=== PATIENT | male | born 1980 | race American Indian/Alaskan Native ===

== ENCOUNTER 2018-08-25 08:52 | Emergency (ER) | payer SELFPAY ==
[2018-08-25 09:02] VITALS: TEMP 98.7
--- NOTE | 2018-08-25 09:41 | ED PDOC ---
Arrival/HPI - General Chief Complaint: Abnormal Skin Integrity Time Seen by Provider: 08/25/18 09:05 Historian: Patient - History of Present Illness Narrative History of Present Illness (Text): 08/25/18 09:28 37 year old male, with no significant past medical history, presents to the emergency department complaining of left eye swelling that began 2 days ago. Patient reports there was a pimple near his left eye that was popped after showering and noted pus and blood. He denies any pain at this time. Patient denies wearing contacts or eye glasses. Patient denies any vision change, fevers, chills, chest pain, shortness of breath, back pain, neck pain, urinary symptoms, headache, dizziness, or any other complaint. PMD: None Time/Duration: Other (2 days) Symptom Onset: Gradual Symptom Course: Unchanged Activities at Onset: Light Context: Home Past Medical History - Provider Review Nursing Documentation Reviewed: Yes - Psychiatric Hx Substance Use: Yes (Marijuana) Family/Social History - Physician Review Nursing Documentation Reviewed: Yes Family/Social History: No Known Family HX Smoking Status: Light Smoker < 10 Cigarettes Daily Hx Alcohol Use: Yes Frequency of alcohol use: Socially Hx Substance Use: Yes (Marijuana) Allergies/Home Meds Allergies/Adverse Reactions: Allergies No Known Allergies Allergy (Verified 08/25/18 09:02) Review of Systems - Physician Review All systems were reviewed & negative as marked: Yes - Review of Systems Constitutional: absent: Fevers, Other (Chills) Eyes: Other (swelling to the left eye ). absent: Vision Changes Respiratory: absent: SOB Cardiovascular: absent: Chest Pain Gastrointestinal: absent: Abdominal Pain, Diarrhea, Nausea, Vomiting Musculoskeletal: absent: Back Pain, Neck Pain Neurological: absent: Headache, Dizziness Physical Exam Vital Signs Reviewed: Yes Vital Signs Temp Pulse Resp BP Pulse Ox 08/25/18 08:59 98.7 F 88 18 148/97 H 98 Temperature: Afebrile Blood Pressure: Hypertensive Pulse: Regular Respiratory Rate: Normal Appearance: Positive for: Well-Appearing, Non-Toxic, Comfortable Pain Distress: None Mental Status: Positive for: Alert and Oriented X 3 - Systems Exam Head: Present: Atraumatic, Normocephalic, Swelling (Periorbital swelling), Other (Dry excoriation to the left jain. Bogginess noted to the lower eyelid. Induration noted to the lateral position of the upper eyelid. ) Pupils: Present: PERRL Extroacular Muscles: Present: EOMI (no pain to the EOM) Conjunctiva: Present: Normal Mouth: Present: Moist Mucous Membranes Neck: Present: Normal Range of Motion Respiratory/Chest: Present: Clear to Auscultation, Good Air Exchange. No: Respiratory Distress, Accessory Muscle Use Cardiovascular: Present: Regular Rate and Rhythm, Normal S1, S2. No: Murmurs Neurological: Present: GCS=15, CN II-XII Intact, Speech Normal Skin: Present: Warm, Dry, Normal Color. No: Rashes Psychiatric: Present: Alert, Oriented x 3, Normal Insight, Normal Concentration Medical Decision Making ED Course and Treatment: 08/25/18 09:28 Impression: 37 year old male presents complaining of left eye swelling for the past 2 days. Patient had a pimple that ruptured out pus and blood near the left eye. Differential Diagnosis included but are not limited to: -- Prespetal Cellulitis -- Orbital Cellulitis -- Dacrocystitis -- Cavernous sinus thrombosis Plan: -- CT Sinuses w/o contrast -- Labs -- Reassess and disposition Progress Notes: 08/25/18 11:35 On re-evaluation, patient is in no acute distress. Patient noted to have no pain with extra ocular movement, afebrile and complaining of any headache. I have discussed the results and plan with the patient, who expresses understanding. He is in agreement with plan to be discharged home and understands he must continue surveillance of symptoms in conjunction with use of antibiotics. He is stable for discharge and instructed to follow up with physician or return if symptoms worsen or new concerning symptoms arise. - Lab Interpretations I have reviewed the lab results: Yes - RAD Interpretation Narrative RAD Interpretations (Text): PROCEDURE: CT SINUSES WITHOUT CONTRAST Dictator : Monica Ward MD Report Date : 08/25/2018 10:59:33 IMPRESSION: 1. Findings are most compatible with preseptal and periorbital cellulitis in the absence of history of trauma and given right frontal and ethmoid sinusitis. Small focus of air superior medial and lateral to the globe of on certain etiology. No CT evidence for postseptal orbital cellulitis. 2. Moderate mucosal thickening in the left frontal sinus and ethmoid air cells most compatible with acute/chronic sinusitis. 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 I have reviewed the chart and agree that the record accurately reflects my personal performance of the history, physical exam, medical decision making, and the department course for this patient. I have also personally directed, reviewed, and agree with the discharge instructions and disposition. Disposition/Present on Arrival - Present on Arrival Any Indicators Present on Arrival: No History of DVT/PE: No History of Uncontrolled Diabetes: No Urinary Catheter: No History of Decub. Ulcer: No History Surgical Site Infection Following: None - Disposition Have Diagnosis and Disposition been Completed?: Yes Diagnosis: Preseptal cellulitis of left eye Disposition: HOME/ ROUTINE Disposition Time: 11:39 Patient Plan: Discharge Condition: STABLE Discharge Instructions (ExitCare): Orbital Cellulitis (DC) Print Language: TURKISH Additional Instructions: All medical record entries made by the Scribe were at my direction and personally dictated by me. I have reviewed the chart and agree that the record accurately reflects my personal performance of the history, physical exam, medical decision making, and the department course for this patient. I have also personally directed, reviewed, and agree with the discharge instructions and disposition. Please take medication as prescribed Please make an appointment with the ENT surgeon Prescriptions: Clindamycin [Cleocin] 300 mg PO TID 10 Days #30 cap Referrals: [facility] at [facility] [place] [Outside] - Follow up with primary Kacie Stuart MD [Medical Doctor] - Follow up with primary Waqar Samano DO [Staff Provider] - Follow up with primary Forms: [employer] ([employer]), WORK NOTE
[2018-08-25 10:01] LABS: BASO # 0.05 K/mm3 (0.0-2.0); BASO % 0.5 % (0.0-3.0); EOS # 0.4 (0.0-0.7); EOS % 3.8 % (1.5-5.0); GRAN # 5.54 (1.4-6.5); GRAN % 59.5 % (50.0-68.0); HEMOGLOBIN 15.8 g/dL (14.0-18.0); LYMPH # 2.3 (1.2-3.4); LYMPH % 25.1 % (22.0-35.0); MEAN CELL VOLUME 89.4 fl (80.0-105.0); MEAN CORPUSCULAR HGB CONC 33.5 g/dl (31.0-37.0); MONO % 11.1 % (1.0-6.0); RBC 5.27 10^6/uL (3.5-6.1); RED CELL DISTRIBUTION WIDTH 14.2 % (11.5-14.5); WHITE BLOOD COUNT 9.3 10^3/uL (4.5-11.0)
[2018-08-25 10:04] LABS: ALB/GLOB RATIO 1.3 (1.1-1.8); ALBUMIN 4.4 g/dL (3.0-4.8); ALT/SGPT 62 U/L (7-56); AST/SGOT 44 U/L (17-59); BLOOD UREA NITROGEN 18 mg/dL (7-21); CALCIUM 9.8 mg/dL (8.4-10.5); GFR NON-AFRICAN AMERICAN > 60
--- NOTE | 2018-08-25 11:03 | CT ---
Date of service: 08/25/2018 PROCEDURE: CT SINUSES WITHOUT CONTRAST HISTORY: orbital swelling noted to L eye COMPARISON: None available. TECHNIQUE: Contiguous axial CT images of the paranasal sinuses were obtained. Coronal and sagittal reformats were generated. Radiation dose: Total exam DLP = 687.66 mGy-cm. This CT exam was performed using one or more of the following dose reduction techniques: Automated exposure control, adjustment of the mA and/or kV according to patient size, and/or use of iterative reconstruction technique. FINDINGS: FRONTAL SINUSES: Well developed and well aerated without fluid. There is mild polypoid mucosal thickening in the left frontal sinus. ETHMOID SINUSES: Well developed. There is moderate scattered mucoperiosteal thickening in the left ethmoid air cells. SPHENOID SINUSES: Well developed. There is mild polypoid mucosal thickening in the left sphenoid chamber. MAXILLARY SINUSES: Well developed and well aerated. There is a retention cyst/polyp in the right maxillary alveolus and left lateral maxillary sinus. SINUS DRAINAGE: Osteomeatal complexes, frontoethmoid and sphenoethmoid recesses clear. NASAL SEPTUM: No significant deviation. No destructive lesion. MASS: None. SKULL BASE: Unremarkable. TEMPORAL BONES: Middle ears and mastoid grossly unremarkable. OTHER FINDINGS: There is mild left orbital proptosis. There is also moderate preseptal soft tissue and moderate periorbital soft tissue. There is an ovoid focus of air superior medial to the globe and a smaller focus of air lateral to the globe. IMPRESSION: 1. Findings are most compatible with preseptal and periorbital cellulitis in the absence of history of trauma and given right frontal and ethmoid sinusitis. Small focus of air superior medial and lateral to the globe of on certain etiology. No CT evidence for postseptal orbital cellulitis. 2. Moderate mucosal thickening in the left frontal sinus and ethmoid air cells most compatible with acute/chronic sinusitis..
[2018-08-25 13:39] VITALS: BP 136/74; PULSE 81; RESP 16; O2SAT 97
== END 2018-08-25 13:30 | disposition home or self-care (01) ==
LOC: ED 08:52
DX: L03.213 Periorbital cellulitis (principal)
CPT/HCPCS: 70486; 80053; 85025; 85651; 99282; J0295